=== PATIENT | male | born 2000 | race African-American/Black ===

== ENCOUNTER 2022-09-15 12:03 | Emergency (ER) | payer SELFPAY ==
[~2022-09-15] VITALS: Ht 180.3 cm; Wt 90.0 kg
[2022-09-15 12:05] VITALS: RESP 16
[2022-09-15 13:35] VITALS: BP 138/90; PULSE 60; TEMP 98
[2022-09-15] MEDS ORDERED: ACETAMINOPHEN 325MG TABLET PO ONE (21:15)
== END 2022-09-15 23:55 | disposition left against medical advice (07) ==
LOC: ER 12:03
DX: Z53.21 Procedure and treatment not carried out due to patient leaving prior to being seen by health care provider (principal)
CPT/HCPCS: 99281